=== PATIENT | female | born 1995 | race Two or more races ===

== ENCOUNTER 2024-07-03 18:39 | Outpatient (REF) | payer MEDICAID, SELFPAY ==
[2024-07-03 18:52] LABS: Appearance Urine Cloudy; Color Urine Yellow; Glucose Urine UA Negative (Negative); Leukocyte Esterase Urine Large (3+) (Negative); Nitrite Urine Negative (Negative); PH 7.5 (5.0-9.0); Specific Gravity - Urine 1.025 (1.005-1.025); UMIC TRIGGER UACC YES; Urine Blood Negative (Negative); Urine Ketones Negative (Negative); Urine Protein Trace mg/dL (Neg-Trace)
[2024-07-03 19:09] LABS: Bacteria Urine 2+ (None Seen); Hyaline Casts Urine 0-2 /LPF (0-2); RBC Urine 0-2 /HPF (0-2); Squamous Epithelial Cell Urine >20 /HPF (0-2); UACC Culture Trigger YES; WBC Urine 0-5 /HPF (0-5)
[2024-07-04 13:52] LABS: CT PCR NOT DETECTED (Not Detect.); NG PCR NOT DETECTED (Not Detect.)
== END 2024-07-03 18:40 | disposition home or self-care (01) ==
LOC: HO.HHCLNP 18:39
PROVIDERS: Visit Provider Internal Medicine
DX: N76.0 Acute vaginitis (principal)
CPT/HCPCS: 81001; 87086; 87147; 87491; 87591

== ENCOUNTER 2024-07-25 12:01 | Emergency (ER) | payer MEDICAID, SELFPAY ==
--- NOTE | 2024-07-25 12:17 | ED_ITS ---
HPI - General Adult General Chief complaint: Skin/Abscess/Foreign Body Stated complaint: Lump under armpit Time Seen by Provider: 07/25/24 17:21 History of Present Illness HPI narrative: Patient complains of painful bump under right armpit that started several days ago, there has been no discharge from it there was no injury to it there is no fever there is no joint swelling no dizziness or weakness no other complaint except the increasingly painful bump under right armpit Related Data Previous Rx's ?Medication ?Instructions ?Recorded doxycycline hyclate 100 mg capsule 100 mg PO BID 7 days #14 caps 07/25/24 ibuprofen 600 mg tablet 600 mg PO Q6H PRN pain #20 tabs 07/25/24 Allergies Allergy/AdvReac Type Severity Reaction Status Date / Time No Known Allergies Allergy Verified 07/25/24 12:22 [facility] Past Medical History Source: nursing notes reviewed Social History Social History Advance Directives: No Advance Directives Information Provided: No Physical Exam ED Vital Signs: Vital Signs - 24 hr 07/25/24 12:18 Temperature 97.8 F Pulse Rate 79 Respiratory Rate 16 Blood Pressure 114/69 Pulse Oximetry 100 Oxygen Delivery Method Room Air BMI result Body Mass Index 32.1 General appearance comfortable no distress, head is normocephalic atraumatic Neck is supple Respiratory no distress Extremities full range of motion x4 Exam of the right armpit there is a localized area of tenderness redness and swelling with no surrounding erythema there is full range of motion in the shoulder, findings are consistent with an abscess Neurovascular intact distal Course Course Course Narrative: This is an RME: Additional HPI, ROS, PE not included below will be deferred to primary provider. RME assessment and note performed by: Ludmila Rhodes PA-C This is a 22-osxe-jnh-filipino creole speaking female, with no known medical problems, who presents to the ER with complaints of right sided lump in right axillary region x 4 days. No hx of similar symptoms in the past. No fevers. Right axillary region with area of fluctuance and induration, surrounding erythema and warmth. Plan: I&D, further eval needed. Patient with right axillary abscess with no fever no systemic symptoms no surrounding cellulitis I and D note Cleansed with Betadine Anesthesia 8 cc of 1% lidocaine The abscess was incised in 2 places with copious discharge of pus, it was probed with forceps to break up any loculations and it was packed through both incisions Sterile dressing applied Patient tolerated well Medications Administered Discontinued Medications Generic Name Dose Route Start Last Admin Trade Name Jensen PRN Reason Stop Dose Admin Acetaminophen 975 mg 07/25/24 12:24 07/25/24 12:27 Acetaminophen 325 Mg Tablet PO 07/25/24 12:25 975 mg ONCE ONE Administration Doxycycline Monohydrate 100 mg 07/25/24 19:06 07/25/24 19:25 Doxycycline Monohydrate 100 Mg Capsule PO 07/25/24 19:07 100 mg ONCE ONE Administration Lidocaine HCl 5 ml 07/25/24 19:07 07/25/24 19:26 Lidocaine Hcl 1 % Mpf 5 Ml Vial SUBCUT 07/25/24 19:08 5 ml ONCE ONE Administration Lidocaine HCl 5 ml 07/25/24 19:07 07/25/24 19:26 Lidocaine Hcl 1 % Mpf 5 Ml Vial SUBCUT 07/25/24 19:08 5 ml ONCE ONE Administration Discharge Plan Discharge Clinical Impression: Abscess of skin or subcutaneous tissue Patient Disposition: Home, Self-Care Additional Instructions: Return to ER in 2 days for packing removal Return any time if worse for worse pain and swelling fever spreading redness any worse condition or any concerns Use Motrin as needed for pain Take doxycycline antibiotic for 1 week Prescriptions: New doxycycline hyclate 100 mg capsule 100 mg PO BID 7 Days Qty: 14 0RF ibuprofen 600 mg tablet 600 mg PO Q6H PRN (Reason: pain) Qty: 20 0RF Interventions: ED Discharge Assessment Last Done: 07/25/24 20:35 Discharge Date/Time: 07/25/24 20:35 Print Language: Unknown
[2024-07-25 12:18] VITALS: BP 114/69; PULSE 79; RESP 16; TEMP 36.6; O2SAT 100; BMI 32.1
[2024-07-25] MEDS: Acetaminophen 325 MG TABLET 975 MG PO (12:27)
[2024-07-25] MEDS: Doxycycline Monohydrate 100 MG CAPSULE PO (19:25)
[2024-07-25] MEDS: Lidocaine HCl 1 % MPF 5 ML VIAL SUBCUT ×2 (19:26)
[2024-07-25 20:08] VITALS: BP 121/82; PULSE 76; RESP 17; TEMP 36.2; O2SAT 100
[2024-07-25 20:35] VITALS: BP 121/82; PULSE 76; RESP 17; TEMP 36.2; O2SAT 100
== END 2024-07-25 20:35 | disposition home or self-care (01) ==
PROVIDERS: Emergency Provider Emergency Medicine
DX: N63.31 Unspecified lump in axillary tail of the right breast (principal); Z79.899 Other long term (current) drug therapy
CPT/HCPCS: 10060; 99284; J2003

== ENCOUNTER 2024-07-27 12:21 | Emergency (ER) | payer MEDICAID, SELFPAY ==
[2024-07-27 13:33] VITALS: BP 107/55; PULSE 62; RESP 16; TEMP 36; O2SAT 100; BMI 32.1
--- NOTE | 2024-07-27 13:35 | ED.WOUNDLAC ---
HPI - Wound/Laceration General Stated Complaint: r armpit inj Time Seen by Provider: 07/27/24 13:44 Source: patient, RN notes reviewed, old records reviewed and biological science aide Mode of arrival: ambulatory Limitations: no limitations History of Present Illness ED Provider: Ponce Johansen PA-C HPI narrative: 29 yo female with recent right axillary abscess s/p I&D and packing placement on 07/25 presents to the ER for re-evaluation and packing removal. patient reports overall pain is improving. continues to have some drainage from the area. she has been taking the antibiotics as prescribed. no fevers. no redness around the area. Onset (ago): day(s) Place: home Patient tetanus UTD: Yes Context: accidental Associated symptoms: pain Treatments prior to arrival: bandage Related Data Previous Rx's ?Medication ?Instructions ?Recorded doxycycline hyclate 100 mg capsule 100 mg PO BID 7 days #14 caps 07/25/24 ibuprofen 600 mg tablet 600 mg PO Q6H PRN pain #20 tabs 07/25/24 Allergies Allergy/AdvReac Type Severity Reaction Status Date / Time No Known Allergies Allergy Verified 07/27/24 13:46 Review of Systems Review of Systems: Yes all other systems are reviewed and are negative Physical Exam Vital Signs: Appearance: Alert. Oriented X3. No acute distress. HEENT: normal inspection CVS: Normal heart rate and rhythm. Pulses normal. Respiratory: No respiratory distress. Skin: Skin warm and dry. Normal skin color. Normal skin turgor. No rashes. Extremities: right axillary area with a purulent packing 3/4 way removed from the abscess, <1cm opening with minimal drainage. no erythema. mild tenderness. Neuro: Oriented X 3. grossly normal, nonfocal Medical Decision Making Medical Decision Making MDM Narrative: 29-year-old Tuvaluan Creole speaking female with recent right axillary abscess incision and drainage on July 25 who presents back to the ER for packing removal and wound evaluation. Patient reports improving pain overall. On exam the packing has almost completely worked at self out. It was fully removed. No surrounding cellulitis. Minimal purulent drainage coming from the wound. Tuvaluan Creole biological science aide used to discuss ongoing management including continuation of antibiotics and initiation of warm compresses several times per day. Return precautions were discussed as well as ongoing wound care. She is stable for discharge home. Differential Diagnosis Differential Diagnoses: The differential diagnosis associated with the presentation includes healing abscess, cellulitis, MRSA infection, hidradenitis suppurativa External Record Review External record reviewed: Outpatient record, Prior outpatient labs and Prior outpatient radiology Prescription Management I considered prescription management with: Pain Medication and Antibiotic Critical Care Time Critical Care Time Critical Care Time: No Discharge Plan Discharge Clinical Impression: Abscess Patient Disposition: Home, Self-Care Instructions: Abscess Follow-up (ED) Additional Instructions: continue the antibiotic use warm compresses to the area 5-6 times per day follow up with your doctor If you develop new or worsening symptoms call 911 or come back to the ER for further evaluation. Prescriptions: No Action doxycycline hyclate 100 mg capsule 100 mg PO BID 7 Days Qty: 14 0RF ibuprofen 600 mg tablet 600 mg PO Q6H PRN (Reason: pain) Qty: 20 0RF Print Language: Unknown
[2024-07-27 13:47] VITALS: BP 107/55; PULSE 62; RESP 16; TEMP 36; O2SAT 100
== END 2024-07-27 13:51 | disposition home or self-care (01) ==
LOC: HO.ED 13:49
PROVIDERS: Emergency Provider Emergency Medicine
DX: Z48.01 Encounter for change or removal of surgical wound dressing (principal); L02.411 Cutaneous abscess of right axilla
CPT/HCPCS: 99282

== ENCOUNTER 2024-08-01 18:29 | Outpatient (REF) | payer MEDICAID, SELFPAY ==
[2024-08-02 12:18] LABS: CT PCR NOT DETECTED (Not Detect.); NG PCR NOT DETECTED (Not Detect.)
[2024-08-02 13:54] LABS: Bacterial Vaginosis PCR NEGATIVE (Negative); Candida Group PCR DETECTED (Not Detect); Candida glab krusei PCR NOT DETECTED (Not Detect); Trichomonas vaginalis PCR NOT DETECTED (Not Detect)
== END 2024-08-01 18:30 | disposition home or self-care (01) ==
LOC: HO.HHCLNP 18:29
PROVIDERS: Visit Provider Nurse Practitioner Family
DX: N94.9 Unspecified condition associated with female genital organs and menstrual cycle (principal)
CPT/HCPCS: 0352U; 87491; 87591

== ENCOUNTER 2025-01-10 15:02 | Outpatient (REF) | payer MEDICAID, SELFPAY ==
--- OUTSIDE RECORDS SUMMARY | 2025-01-10 17:32 | XMS_ITS | Clinical Summary ---
Author Organization [employer] Address [address] [place] [address] Care Team Providers Care Shrimp Header Name Role Phone Monica Dukes LINE ASSIGNER Primary Care Provider [phone] Allergies No known active allergies Medications medroxyPROGESTER one (Depo-Provera) 150 MG/ML injectionIndicat ions:Family planning Inject 1 mL (150 mg) into the muscle every 3 (three) months. 1 mL 3 08/31/2024 Active medroxyPROGESTER one (Depo-Provera) 150 MG/ML injectionIndicat ions:Family planning Inject 1 mL (150 mg) into the muscle every 3 (three) months. 1 mL 3 08/31/2024 Active Hospital, Clinic, or Other Facility Administered Medication Ordered Dose Route Frequency Start Date End Date Status medroxyPROGESTERone (Depo-Provera) injection 150 mgIndications:Family planning 150 mg IM Every 3 months 08/31/2024 08/26/2025 Active Active Problems Problem Noted Date Diagnosed Date Healthcare maintenance 12/22/2024 Overview (12/22/2024): Pap: denies previous knowledge of pap. Encouraged to schedule during [facility] appt on 12/22/24, she said will consider Assessment & Plan (12/22/2024 2:47 PM EDT): Initial routine labs ordered today Resolved Problems Problem Noted Date Diagnosed Date Resolved Date Cutaneous abscess of right axilla 07/25/2024 12/22/2024 Assessment & Plan (07/25/2024 11:27 AM EDT): Patient here for a sick visit with c/o painful right axillary masses x 3 days. Exam suggestive of abscesses, hydradenitis suppurativa? Pt unable to move her right arm as a result of severe pain Plan: Pt needs to be evaluated in the ER, she will need a soft tissues US to rule out other etiologies . Will also need I & D and initial IV antibiotics followed by oral antibiotics. Follow up here at the [facility] for a check up after ER evaluation and I&D, while patient awaits to be assigned to PCP Acute vaginitis 07/03/2024 12/22/2024 Assessment & Plan (07/03/2024 1:44 PM EDT): Will rx fluconazole x 1 dose Will order GC/Chlamydia tests + Urine cx, and we'll call back prn abn results. Will schedule a [facility] appt with new PCP or re consult earlier prn sxs. I advised re protected intercourse, even though the most likely cause of today's sxs (leandra) is not a STD. She says she protects herself. I advised re use of BC but she declined to start OCPs, patch or injectable. She didn't want to be scheduled for IUD or nexplanon. She's aware of emergency contraception. Encounters Date Type Department Care Team Description 12/22/2024 1:15 PM EDT Office Visit [facility] [address] [place] [address] Monica Dukes FNP Healthcare maintenance (Primary Dx); Dietary counseling; Exercise counseling; Encounter for immunization; Contraceptive education 12/22/2024 Travel 12/22/2024 Population Health Risk Score Community Care [facility] ([facility]) Department [address] [place] [address] [phone] Provider, Population Health Generic 12/18/2024 Telephone [facility] [address] [place] [address] Monica Dukes FNP Chart Prep 11/30/2024 3:00 PM EST Clinical Support [facility] [address] [place] [address] Larua Torres RN Encounter for contraceptive management, unspecified type 11/30/2024 Travel 11/30/2024 Telephone [facility] [address] [place] [address] Natalee Jauregui RN [place] 10/13/2024 Telephone [facility] [address] [place] [address] Celio Sanches MD New patient appt. from Last 3 Months Immunizations Name Administration Dates Next Due Tdap 12/22/2024 Family History Medical History Relation Name Comments No Known Problems Father No Known Problems Mother Relation Name Status Comments Father Mother Social History Tobacco Use Types Packs/Day Years Used Date Smoking Tobacco: Never Passive Smoke Exposure: Never Smokeless Tobacco: Never Tobacco Cessation:Counseling Given: Not Answered Alcohol Use Standard Drinks/Week Comments Never 0 (1 standard drink = 0.6 oz pur e alcohol) Housing Stability Answer Date Recorded What is your housing situation today? I have deacon mancini 12/22/[address] you li ve. Do you have problems with any of the following? None of the above 12/22/2024 Food Insecurity Answer Date Recorded Within the past 12 months, y ou worried that your food would run out before you got money to buy more: Never True 12/22/2024 Within the past 12 months,th e food you bought just didn't last and you didn't have enough money to get more: Never True Transportation Answer Date Recorded In the past 12 months, has l ack of transportation kept you from medical appts, meetings, work or from getting things needed for daily living? No 12/22/2024 Utilities Answer Date Recorded In the past 12 months, has t he [employer], gas, oil or water [employer] threatened to shut off services in your home? No 12/22/2024 Internet Access Answer Date Recorded Internet Access Q1 Yes 12/22/2024 Internet Access Q2 Not on file 12/22/2024 Comments No Sex and Gender Information Value Date Recorded Sex Assigned at Female 06/28/2024 1:38 PM EDT Legal Sex Female 1:24 PM EDT Gender Identity Female 06/28/2024 1:38 PM EDT Sexual Orientation Choose not to disclose 2023 1:40 PM EDT Last Filed Vital Signs Vital Sign Reading Time Taken Comments Blood Pressure 123/73 12/22/2024 1:28 PM EDT Pulse 85 12/22/2024 1:28 PM EDT Temperature 37 ??C (98.6 ??F) 12/22/2024 1:28 PM EDT Respiratory Rate 20 12/22/2024 1:28 PM EDT Oxygen Saturation 98% 12/22/2024 1:28 PM EDT Inhaled Oxygen Concentration - - Weight 86.4 kg (190 lb 6 oz) 12/22/2024 1:28 PM EDT Height 162.6 cm (5' 4 ) 12/22/2024 1:28 PM EDT Body Mass Index 32.68 12/22/2024 1:28 PM EDT Plan of Treatment Upcoming Encounters Date Type Department Care Team (Late st Contact Info) Description 03/02/2025 11:00 AM EDT Clinical Support [facility] [address] [place] [address] 03/09/2025 10:00 AM EDT Office Visit [facility] [address] [place] [address] Monica Dukes FNP [address] [place] [address] Health Maintenance Due Date Last Done Comments Depression Screening 1995 HIV Screening 1995 Hepatitis C Screening 2013 Hepatitis B Vaccines (1 of 3 - 19+ 3-dose series) 2014 Pap Smear 02/15/2016 COVID-19 Vaccine (2023-2 5 season) 2024 Influenza Vaccine (#1) 2024 Alcohol/Substance Use Screening 12/22/2025 Family Planning (PISQ) 12/22/2025 12/22/2024 SDOH Screening 12/22/2025 12/22/2024 Tobacco Screening 12/22/2025 12/22/2024 DTaP/Tdap/Td Vaccines (2 - T d or Tdap) 12/22/2034 12/22/2024 Zoster Vaccines (1 of 2) 2045 RSV Patients and Pa tients Aged 60 years or older (1 - 1-dose 75+ series) 2070 HIB Vaccines Aged Out No longer eligi ble based on patient's age to complete this topic HPV Vaccines Aged Out No longer eligi ble based on patient's age to complete this topic Hepatitis A Vaccines Aged Out No long er eligible based on patient's age to complete this topic IPV Vaccines Aged Out No longer eligi ble based on patient's age to complete this topic Meningococcal Vaccine Aged Out No vitaliy brian eligible based on patient's age to complete this topic Pneumococcal Vaccine: Pediat rics (0 to 5 Years) and At-Risk Patients (6 to 49) Years) Aged Out No longer elig ible based on patient's age to complete this topic RSV under 20 months Aged Out No longe r eligible based on patient's age to complete this topic Rotavirus Vaccines Aged Out No longer eligible based on patient's age to complete this topic Insurance [employer] C3 Care Teams Shrimp Header Relationship Specialty Start Date End Date Monica Dukes FNP [address] [place] [phone] PCP - General Family Medicine 12/22/24
[2025-01-10 18:03] LABS: MANUAL DIFF FLAG NO
[2025-01-10 18:32] LABS: Estimated Average Glucose 126 mg/dL; Total Hemoglobin (HGBA1C) 3081.7817 umol/L
[2025-01-10 18:39] LABS: Alanine Aminotransferase 68 U/L (0-31); Alkaline Phosphatase 97 U/L (39-117); Anion Gap 7 (12-20); Aspartate Amino Transferase 42 U/L (5-31); Bilirubin Total 0.2 mg/dL (0.0-1.0); Blood Urea Nitrogen 8 mg/dL (9-16); Calcium 8.8 mg/dL (8.4-10.2); Carbon Dioxide 24 mmol/L (22-29); Chloride 111 mmol/L (96-108); Cholesterol 132 mg/dL (<200); Estimated Glomerular Filt Rate > 60; Glucose Random 103 mg/dL (60-115); HDL Cholesterol 36 mg/dL (>40); LDL Cholesterol Calculated 85 mg/dL (<100); Potassium 3.7 mmol/L (3.3-5.1); Sodium 138 mmol/L (135-145); Total Protein 7.6 g/dL (6.5-8.0); Triglycerides 55 mg/dL (<150)
[2025-01-10 18:51] LABS: Basophils Absolute Auto 0.1 X10*3/uL (0.0-0.2); Basophils Percent Auto 0.7 % (0-2); Eosinophils Absolute Auto 0.3 X10*3/uL (0.0-0.4); Eosinophils Percent Auto 4.3 % (0-4); Hematocrit 35.8 % (37.0-47.0); Hemoglobin 11.4 g/dl (12.0-16.0); Imm Gran Abs Auto 0.01 X10*3/uL (0.00-0.03); Imm Gran Pct Auto 0.1 % (0.0-0.4); Lymphocytes Absolute Auto 3.1 X10*3/uL (1.2-4.9); Lymphocytes Percent Auto 42.8 % (20-40); Mean Corpuscular HGB Conc 31.8 g/dl (31.0-35.0); Mean Corpuscular Hemoglobin 25.8 pg (27.0-33.0); Mean Platelet Volume 11.8 fL (9.4-12.3); Monocytes Absolute Auto 0.7 X10*3/uL (0.1-1.2); Monocytes Percent Auto 9.2 % (2-11); Neutrophils Absolute Auto 3.1 x10*3/uL (2.0-8.3); Neutrophils Percent Auto 42.9 % (45-73); Platelet Count 233 X10*3/uL (160-400); Red Blood Count 4.42 X10*6/uL (4.20-5.50); Red Cell Distribution Width 14.6 % (11.0-16.0); White Blood Count 7.3 X10*3/uL (4.8-10.8)
[2025-01-10 18:56] LABS: TSH reflex Free T4 0.87 uIU/mL (0.32-4.0); Vitamin D 25-OH Total 19.5 ng/mL (>30)
[2025-01-11 02:18] LABS: CT PCR DETECTED (Not Detect.); NG PCR NOT DETECTED (Not Detect.)
[2025-01-11 08:47] LABS: HBS Num1 47.26 mIU/mL (0-7.99); HBc Num1 0.16 S/CO (0.00-0.79); HBsAGNum1 0.32 S/CO (0.00-0.99); HIV AB/AG Nonreactive (Nonreactive); HIV Num 1 0.08 S/CO (0.00-0.99); Hepatitis B Core Antibody Nonreactive (Nonreactive); Hepatitis B Surface Antigen Negative (Negative); ~Hepatitis B Surface Antibody REACTIVE (Nonreactive)
[2025-01-11 12:48] LABS: RPR Rapid Plasma Reagin NON-REACTIVE (NON-REACTIVE)
[2025-01-11 17:53] LABS: HCV Log PCR <1.18 NOT DETECTED Log IU/mL (NOT DETECTED); HepC Viral Load <15 NOT DETECTED IU/mL (NOT DETECTED)
[2025-01-13 00:24] LABS: TS Negative Control Passed; TS Panel A 0; TS Panel B 1; TS Positive Control Passed; TSpotTB Negative (Negative)
== END 2025-01-10 15:03 | disposition home or self-care (01) ==
LOC: HO.CHCLDS 15:02
PROVIDERS: Visit Provider Registered Nurse
DX: Z00.00 Encounter for general adult medical examination without abnormal findings (principal)
CPT/HCPCS: 36415; 80053; 80061; 82306; 83036; 84443; 85025; 86481; 86592; 86704; 86706; 87340; 87389; 87491; 87522; 87591

== ENCOUNTER 2025-03-09 15:30 | Outpatient (REF) | payer MEDICAID, SELFPAY ==
--- OUTSIDE RECORDS SUMMARY | 2025-03-09 15:36 | XMS_ITS | Encounter Summary ---
Author Organization [employer] Address [address] [place] [address] Care Team Providers Care Cyberathlete Name Role Phone Monica Dukes TRAFFIC MAINTENANCE SUPERVISOR Primary Care Provider [phone] Encounter Details Date Type Department Care Team (Latest Contact Info) Description 03/09/2025 Travel Social History Tobacco Use Types Packs/Day Years Used Date Smoking Tobacco: Never Passive Smoke Exposure: Never Smokeless Tobacco: Never Alcohol Use Standard Drinks/Week Comments Never 0 (1 standard drink = 0.6 oz pur e alcohol) Depression Answer Date Recorded Patient Health Questionnaire-9 Score 0 03/09/2025 Patient Health Questionnaire-9 Score 0 03/09/2025 Last PHQ-9: Questionnaire Data Not on file 0 03/09/2025 Housing Stability Answer Date Recorded What is [...] the past 12 months, has t he electric, gas, oil or water company threatened to shut off services in your home? No 12/22/2024 Depression Answer Date Recorded Patient Health Questionnaire-2 Score 0 03/09/2025 Internet Access Answer Date Recorded Internet Access Q1 Yes 12/22/2024 Internet Access Q2 Not on file 12/22/2024 Comments No Sex and Gender Information Value Date Recorded Sex Assigned at Female 06/28/2024 1:38 PM EDT Legal Sex Female 1:24 PM EDT Gender Identity Female 06/28/2024 1:38 PM EDT Sexual Orientation Choose not to disclose 2023 1:40 PM EDT documented as of this encounter Functional Status * Over the past 2 weeks, how often have you been bothered by any of the following problems? Question Answer Date of Assessment Author Patient Health Questionnaire-2 Score 0 02/10 9:59 AM Klyie Zuniga MA * Little interest or pleasure in doing things Answer Date of Assessment Author Not at all 03/09/2025 9:59 AM Ana Zuniga MA * Feeling down, depressed, or hopeless Answer Date of Assessment Author Not at all 03/09/2025 9:59 AM Ana Zuniga MA * Trouble falling or staying asleep, or sleeping too much Answer Date of Assessment Author Not at all 03/09/2025 9:59 AM Ana Zuniga MA * Feeling tired or having little energy Answer Date of Assessment Author Not at all 03/09/2025 9:59 AM Ana Zuniga MA * Poor appetite or overeating Answer Date of Assessment Author Not at all 03/09/2025 9:59 AM Ana Zuniga MA * Feeling bad about yourself - or that you are a failure or have let yourself or your family down Answer Date of Assessment Author Not at all 03/09/2025 9:59 AM Ana Zuniga MA * Trouble concentrating on things, such as reading the newspaper or watching television Answer Date of Assessment Author Not at all 03/09/2025 9:59 AM Ana Zuniga MA * Moving or speaking so slowly that other people could have noticed? Or the opposite - being so fidgety or restless that you have been moving around a lot more than usual. Answer Date of Assessment Author Not at all 03/09/2025 9:59 AM Ana Zuniga MA * Thoughts that you would be better off or hurting yourself in some way Answer Date of Assessment Author Not at all 03/09/2025 9:59 AM EDT Ana Harper MA * Patient Health Questionnaire-9 Score Answer Date of Assessment Author 0 03/09/2025 9:59 AM EDT Ana Harper MA documented as of this encounter Plan of Treatment Upcoming Encounters Date Type Department Care Team (Late st Contact Info) Description 05/29/2025 1:00 PM EDT Clinical Support [facility] [address] [place] [id number] documented as of this encounter Visit Diagnoses Not on filedocumented in this encounter Additional Health Concerns Assessment Noted Time PHQ-9 Depression Total Score: 0 03/09/20 9:59 AM EDT documented as of this encounter Care Teams Cyberathlete Relationship Specialty Start Date End Date Monica Dukes FNP [address] [place] [id number] PCP - General Family Medicine 12/22/24 documented as of this encounter
[2025-03-10 03:43] LABS: CT PCR DETECTED (Not Detect.); NG PCR NOT DETECTED (Not Detect.)
== END 2025-03-09 15:31 | disposition home or self-care (01) ==
LOC: HO.CHCLNP 15:30
PROVIDERS: PCP Registered Nurse; Visit Provider Registered Nurse
DX: Z00.00 Encounter for general adult medical examination without abnormal findings (principal)
CPT/HCPCS: 87491; 87591

== ENCOUNTER 2025-07-13 14:28 | Outpatient (REF) | payer MEDICAID, SELFPAY ==
--- OUTSIDE RECORDS SUMMARY | 2025-07-13 08:30 | XMS_ITS | Encounter Summary ---
Author Organization [employer] Address [address] [place] [address] Care Team Providers Care Line Dancer Name Role Phone Monica Dukes Primary Care Provider [phone] Encounter Details Date Type Department Care Team ([facility] st Contact Info) Description 07/13/2025 8:30 AM EDT Office Visit [facility] [address] [place], [place] [phone] Monica Dukes FNP [address] [place], [place] [phone] Encounter for immunization (Primary Dx); Healthcare maintenance Social History Tobacco Use Types Packs/Day Years [...] PM EDT documented as of this encounter Last Filed Vital Signs Vital Sign Reading Time Taken Comments Blood Pressure 107/60 07/13/2025 8:40 AM EDT Pulse 66 07/13/2025 8:40 AM EDT Temperature 36.7 C (98 F) 07/13/2025 8:40 AM EDT Respiratory Rate 20 07/13/2025 8:40 AM EDT Oxygen Saturation 99% 07/13/2025 8:40 AM EDT Inhaled Oxygen Concentration - - Weight 88.5 kg (195 lb) 07/13/2025 8:40 AM EDT Height 165.1 cm (5' 5 ) 07/13/2025 8:40 AM EDT Body Mass Index 32.45 07/13/2025 8:40 AM EDT documented in this encounter Plan of Treatment Upcoming Encounters Date Type Department Care Team (Late st Contact Info) Description 07/24/2025 9:00 AM EDT Procedure Visit [facility] [address] [place] [address] Mai Randall MD [address] [place] [address] Scheduled Orders Name Type Priority Associated Diagnoses Orde r Schedule Chlamydia/Trichomonas/Neis seria gonorrhoeae, PCR, Urine Lab Routine Healthcare maintenance Ordered: 07/13/2025 documented as of this encounter Visit Diagnoses Diagnosis Encounter for immunization- Primary Healthcare maintenance documented in this encounter Additional Health Concerns Assessment Noted Time PHQ-9 Depression Total Score: 0 03/09/20 9:59 AM EDT documented as of this encounter Care Teams Line Dancer Relationship Specialty Start Date End Date Monica Dukes FNP [address] [place] [id number] PCP - General Family Medicine 12/22/24 documented as of this encounter
--- OUTSIDE RECORDS SUMMARY | 2025-07-13 14:33 | XMS_ITS | Encounter Summary ---
Author Organization [employer] Address [address] [place] [address] Care Team Providers Care Pipe Manufacture Supervisor Name Role Phone Monica Dukes MACHINE BUNCH MAKER Primary Care Provider [phone] Encounter Details Date Type Department Care Team (Latest Contact Info) Description 07/13/2025 Travel Social History Tobacco Use Types Packs/Day [...] PM EDT documented as of this encounter Plan of Treatment Upcoming Encounters Date Type Department Care Team ([facility] st Contact Info) Description 07/24/2025 9:00 AM EDT Procedure Visit [facility] [address] [place] [address] Mai Randall MD [address] [place] [address] documented as of this encounter Visit Diagnoses Not on filedocumented in this encounter Additional Health Concerns Assessment Noted Time PHQ-9 Depression Total Score: 0 03/09/20 9:59 AM EDT documented as of this encounter Care Teams Pipe Manufacture Supervisor Relationship Specialty Start Date End Date Monica Dukes FNP [address] [place] [address] PCP - General Family Medicine 12/22/24 documented as of this encounter
--- OUTSIDE RECORDS SUMMARY | 2025-07-13 14:33 | XMS_ITS | Encounter Summary ---
Author Organization [employer] Address [address] [facility] [address] [place] [address] Care Team Providers Care Clutch Inspector Name Role Phone Monica Dukes DIRECTOR TELEMETRY Primary Care Provider [phone] Reason for Visit * Reason Onset Date Comments Chart Prep 07/12/2025 Encounter Details Date Type Department Care Team ([facility] st Contact Info) Description 07/12/2025 Telephone [facility] [address] [place], [place] [phone] Monica Dukes FNP [address] [place], [place] [phone] Chart Prep Social History Tobacco Use Types Packs/Day Years [...] PM EDT documented as of this encounter Miscellaneous Notes * Telephone Encounter - Maritza Christiansen [place] - 07/12/2025 2:16 PM EDT Chart Prep Labs: not done Images: not applicable Referrals: not applicable Vaccines due: due Screenings: pap smear Overdue care gaps: Disability screen documented in this encounter Plan of Treatment Upcoming Encounters Date Type Department Care Team (Late st Contact Info) Description 07/24/2025 9:00 AM EDT Procedure Visit [facility] P[facility] [address] [place] [address] Mai Randall MD [address] [place] [address] documented as of this encounter Visit Diagnoses Not on filedocumented in this encounter Additional Health Concerns Assessment Noted Time PHQ-9 Depression Total Score: 0 03/09/20 9:59 AM EDT documented as of this encounter Care Teams Clutch Inspector Relationship Specialty Start Date End Date Monica Dukes FNP [address] [place] [address] PCP - General Family Medicine 12/22/24 documented as of this encounter
--- OUTSIDE RECORDS SUMMARY | 2025-07-13 14:33 | XMS_ITS | Clinical Summary ---
Author Organization [employer] Address [address] [place] [address] Care Team Providers Care Drywall Stripper Name Role Phone Monica Dukes DELICATESSEN CLERK Primary Care Provider [phone] Allergies No known active allergies Medications cholecalciferol (Vitamin D-3) 25 MCG (1000 UT) tabletIndicatio ns:Vitamin D deficiency Take 1 tablet (25 mcg) by mouth Once per day. 90 tablet 3 5 Active norethindrone (Micronor) 0.35 MG tablet Take 1 tablet (0.35 mg) by mouth Once per day. 28 tablet 11 5 05/31/20 26 Active medroxyPROGESTE Moses (Depo-Provera) 150 MG/ML injectionIndica tions:Family planning Inject 1 mL (150 mg) into the muscle every 3 (three) months. 1 mL 3 4 07/13/20 25 Discontinu ed(Therapy completed) medroxyPROGESTE Moses (Depo-Provera) 150 MG/ML injectionIndica tions:Family planning Inject 1 mL (150 mg) into the muscle every 3 (three) months. 1 mL 3 4 07/13/20 25 Discontinu ed(Therapy completed) Hospital, Clinic, or Other Facility Administered Medication Ordered Dose Route Frequency Start Date End Date Status medroxyPROGESTERon e (Depo-Provera) injection 150 mgIndications:Fami ly planning 150 mg IM Every 3 months 08/31/2024 5 Discontinued Active Problems Problem Noted Date Diagnosed Date Prediabetes 03/09/2025 Overview (03/11/2025): Lab Results Component Value Date HGBA1C 6.0 01/10/2025 Assessment & Plan (03/11/2025 7:20 PM EDT): - Results and recommendations reviewed with patient -Plan for lifestyle interventions Vitamin D insufficiency 03/09/2025 Overview (03/11/2025): Lab Results Component Value Date [id number] 19.5 (L) 01/10/2025 - Started on vitamin D 1000 units daily January 2025 Transaminitis 03/09/2025 Overview (03/11/2025): Lab Results Component Value Date AST 42 (H) 01/10/2025 ALT 68 (H) 01/10/2025 TOTPROTEIN 7.6 01/10/2025 ALB 4.0 01/10/2025 ALP 97 01/10/2025 TOTALBILIRUB 0.2 01/10/2025 Assessment & Plan (03/11/2025 7:22 PM EDT): - Reviewed results with patient, plan for lifestyle interventions. Repeat in 6- 12 months. Healthcare maintenance 12/22/2024 Overview (12/22/2024): Pap: denies previous knowledge of pap. Encouraged to schedule during CHANGE MANAGEMENT DIRECTOR appt on 12/22/24, she said will consider [...] oral antibiotics. Follow up here at the [facility] for a check up after ER evaluation and I&D, while patient awaits to be assigned to PCP Acute vaginitis 07/03/2024 12/22/2024 Assessment & Plan (07/03/2024 1:44 PM EDT): Will rx fluconazole x 1 dose Will order GC/Chlamydia tests + Urine cx, and we'll call back prn abn results. Will schedule a CHANGE MANAGEMENT DIRECTOR appt with new PCP or re consult [...] Encounters Date Type Department Care Team Description 07/13/2025 8:30 AM EDT Office Visit [facility] [address] [place] [address] Monica Dukes FNP Encounter for immunization (Primary Dx); Healthcare maintenance 07/13/2025 Travel 07/12/2025 Telephone [facility] [address] [place] [address] Monica Dukes FNP Chart Prep 05/31/2025 11:15 AM EDT Telemedicine [facility] [address] [place] [address] Jay Mcdonald MD Encounter for initial prescription of contraceptive pills (Primary Dx) 05/31/2025 Travel 05/29/2025 1:00 PM EDT Clinical Support [facility] [address] [place] [address] Isa Sesay RN Healthcare maintenance [Z00.00] 05/29/2025 Travel 05/23/2025 Travel from Last 3 Months Immunizations Immunization Administration Dates Next Due Influenza, seasonal, injectable, preservative fr ee 07/13/2025 Tdap 12/22/2024 Varicella 12/10/2023 Family History Medical History Relation Name Comments [...] Q2 Not on file 12/22/2024 Comments No Intention Date Recorded No desire to become (finding) 0 12/22/2024 Sex and Gender Information Value Date Recorded [...] Mass Index 32.45 07/13/2025 8:40 AM EDT Plan of Treatment Upcoming Encounters Date Type Department Care Team (Late st Contact Info) Description 07/24/2025 9:00 AM EDT Procedure Visit [facility] [address] [place] [address] Mai Randall MD [address] [place] [address] Health Maintenance Due Date Last Done Comments HPV Vaccines (1 - 3-dose series) 2010 Pap Smear 02/15/2016 Cervical Cancer Screening 2025 HPV/Cotest 2025 COVID-19 Vaccine ( - 2023-2 5 season) 2025 Alcohol/Substance Use Screening 12/22/2025 12/22/2024 Family Planning (PISQ) 12/22/2025 12/22/2024 SDOH Screening 12/22/2025 12/22/2024 Tobacco Screening 12/22/2025 12/22/2024 Diabetes: Hemoglobin A1C 01/10/2026 01/10/2025 Depression Screening 03/09/2026 03/09/2025, 03/09/2025 Disability Screening 07/13/2026 07/13/2025 DTaP/Tdap/Td Vaccines (2 - T d or Tdap) 12/22/2034 12/22/2024 Zoster Vaccines (1 of 2) 2045 RSV Patients and Patients Aged 60 years or older (1 - 1-dose 75+ series) 2070 HIV Screening Completed 01/10/2025 Hepatitis C Screening Completed 01/10/2025 Influenza Vaccine Completed 07/13/2025 HIB Vaccines Aged Out No longer eligi ble based on patient's age to complete this topic Hepatitis A Vaccines Aged Out No long er eligible based on patient's age to complete this topic Hepatitis B Vaccines Discontinued IPV Vaccines Aged Out No longer eligi ble based on patient's age to complete this topic Meningococcal B Vaccine Aged Out No l onger eligible based on patient's age to complete this topic Meningococcal Vaccine Aged Out No vitaliy brian eligible based on patient's age to complete this topic Pneumococcal Vaccine: Pediatrics (0 to 5 Years) and At-Risk Patients (6 to 49) Years Aged Out No longer eligible based on patient's age to complete this topic RSV under 20 months Aged Out No longe r eligible based on patient's age to complete this topic Rotavirus Vaccines Aged Out No longer eligible based on patient's age to complete this topic Procedures Procedure Name Priority Date/Time Associated Diagnosis Comments HEPATITIS C VIRAL RNA, QUANTITATIVE, REAL-TIME PCR Routine 01/10/2025 3:06 PM EDT Healthcare maintenance HIV 1/2 ANTIGEN/ANTIBODY, FOURTH GENERATION W/RFL Routine 01/10/2025 3:06 PM EDT Healthcare maintenance HEMOGLOBIN A1C Routine 01/10/2025 3:06 PM EDT Healthcare maintenance from Last 3 Months or Most Recently Relevant to Health Maintenance Results * Hepatitis C Viral RNA, Quantitative, Real-Time PCR (01/10/2025 3:06 PM EDT) Hepatitis C Viral Load <15 NOT DETECTED NOT DETECTED IU/mL [facility] HCV Log PCR <1.18 NOT DETECTED NOT DETECTED Log IU/mL [facility] Comment:For additional infor tracy, please refer [email or web address]/[email or web address](This link is being provided for informational/educational purposes only.)THIS TEST WAS PERFORMED AT:[employer] [place] [id number] ORTEGA MD Blood 01/10/2025 3:06 PM EDT 01/10/2025 5:57 PM EDT Monica Dukes DELICATESSEN CLERK LAB BLOOD ORDERABLES Final Res ult Performing Organization Address [facility]/ZIP Co de Phone Number [facility] [address] [place] [address] [phone] * HIV-1/2 Antigen and Antibodies, Fourth Generation, with Reflexes (01/10/2025 3:06 PM EDT) HIV AB/AG Nonreactive Nonreactive [facility] Comment:HIV-1 p24 Ag and/or HIV-1/HIV-2 Ab not detected.A test result that is nonreactive does not exclude thepossibility of exposure to or infection with HIV-1 and/orHIV-2. Nonreactive results in this assay for individualswith prior exposure to HIV-1 and/or HIV-2 may be due toantigen and antibody levels that are below the limit ofdetection of this assay.The [employer] HIV Ag/Ab Combo assay result andsupplemental assay results should be interpreted inconjunction with the patient's clinical presentation,history and other laboratory results. If the results areinconsistent with clinical evidence, additional testing issuggested to confirm the result. Blood Venous blood specimen / Unknown 01/10/2025 3:06 PM EDT 01/10/2025 5:57 PM EDT Monicayessy Dukes DELICATESSEN CLERK LAB BLOOD ORDERABLES Final Res ult Performing Organization Address [facility] Co de Phone Number [facility] [address] [place] [address] [phone] * Hemoglobin A1c (01/10/2025 3:06 PM EDT) Hemoglobin A1c 6.0 <6.0 % [facility] Comment:Hemoglobin A1C Refer ence Range Adults: 4.8 - 6.0 % Non diabetic: < 6.0 % Goal: < 7.0 %Additional Action Suggested: > 8.0 %Note: Hemoglobin A1c results are invalid for patients with abnormal amounts of HbF. Blood transfusions may impact the HbA1c concentration in the patient sample. Estimated Average Glucose 126 mg/dL [facility] Comment:eAG = Estimated ave rage glucose which is %A1C expressed asaverage glucose, using the formula of the R0X-AtqpcoxXoeqphg Glucose study (ADAG), Diabetes Care, Vol.31,#8,2007 Blood Venous blood specimen / Unknown 01/10/2025 3:06 PM EDT 01/10/2025 5:57 PM EDT us Monica CAPONE LAB BLOOD ORDERABLES Final Res ult [facility] [address] [place] [address] [phone] from Last 3 Months or Most Recently Relevant to Health Maintenance Insurance [employer] Care Teams Drywall Stripper Relationship Specialty Start Date End Date Monica Dukes FNP [address] [place] [phone] PCP - General Family Medicine 12/22/24
--- OUTSIDE RECORDS SUMMARY | 2025-07-13 14:33 | XMS_ITS | Clinical Summary ---
Author Organization [facility] Address [address] [address] Phone Care Team Providers Care Dry Kiln Feeder Name Role Phone Unknown, Unknown Primary Care Provider Hermelinda cruz Allergies No known active allergies Medications No known medications Active Problems No known active problems Social History Tobacco Use Types Packs/Day Years Used Date Smoking Tobacco: Never Assessed Education Answer Date Recorded Are you interested in more education? Not on sofi e 12/13/2023 Are you concerned about learning? Not on file 12/13/2023 No 12/13/2023 No 12/13/2023 Digital Access Answer Date Recorded No 12/13/2023 No 12/13/2023 Reliable internet access at home? Not on file 12/13/2023 Device with a working camera? Not on file Comments Unknown Sex and Gender Information Value Date Recorded Sex Assigned at Female 12/13/2023 6:03 PM EST Legal Sex Female 3:58 PM EST Gender Identity Female 12/13/2023 6:03 PM EST Sexual Orientation Straight 12/13/2023 6: 03 PM EST Last Filed Vital Signs Vital Sign Reading Time Taken Comments Blood Pressure 119/65 12/21/2023 8:06 PM EDT Pulse 68 12/21/2023 8:06 PM EDT Temperature 36.8 C (98.2 F) 12/21/2023 8:06 PM EDT Respiratory Rate 16 12/21/2023 8:06 PM EDT Oxygen Saturation 99% 12/21/2023 8:06 PM EDT Inhaled Oxygen Concentration - - Weight 65 kg (143 lb 4.8 oz) 12/21/2023 4:57 PM EDT Height 159 cm (5' 2.6 ) 12/21/2023 4:57 PM EDT Body Mass Index 25.71 12/21/2023 4:57 PM EDT Plan of Treatment Health Maintenance Due Date Last Done Comments Adult Td,Tdap Booster 1995 DEPRESSION SCREENING 2007 SMOKING Hx and SMOKELESS TOB ACCO SCREENING 02/15/2008 PAP SMEAR 02/15/2016 INFLUENZA VACCINE (#1) 2025 COVID-19 VACCINE (2023-2 5 season) 2025 HEPATITIS C SCREENING Completed 12/13/2023 HIV ONE-TIME SCREENING (18-6 5 YEARS) Completed 12/13/2023 HEPATITIS A VACCINES Aged Out No long er eligible based on patient's age to complete this topic HIB VACCINES Aged Out No longer eligi ble based on patient's age to complete this topic MENINGOCOCCAL VACCINES (ACWY) Aged Out No longer eligible based on patient's age to complete this topic MENINGOCOCCAL VACCINES (B) Aged Out N o longer eligible based on patient's age to complete this topic PNEUMOCOCCAL VACCINES (0-49 years) Aged Out No longer eligible based on patient's age to complete this topic Medical Devices Not on file Procedures Procedure Name Priority Date/Time Associated Diagnosis Comments HEPATITIS C ANTIBODY, QUALITATIVE STAT 12/13/2023 6:41 PM EST from Last 3 Months or Most Recently Relevant to Health Maintenance Results * Hepatitis C antibody, qualitative (12/13/2023 6:41 PM EST) HCV Nonreactive Nonreactive [facility] Blood 12/13/2023 6:41 PM EST 12/13/2023 6:55 PM EST us Pierre Adarsh Walsh MD LAB BLOOD ORDERABLES Dolores alas Result [facility] [address] [place] [phone] from Last 3 Months or Most Recently Relevant to Health Maintenance [place] [facility] [place] [facility] [place] [facility] [place] [id number] Care Teams Dry Kiln Feeder Relationship Specialty Start Date End Date Unknown, Unknown, PCP - General 12/13/23 Additional Source Comments The information contained in this document represents components of the legal health record. It is not the complete legal health record.[facility]
[2025-07-13 16:25] LABS: CT PCR Urine NOT DETECTED (Not Detect.); NG PCR Urine NOT DETECTED (Not Detect.)
== END 2025-07-13 14:29 | disposition home or self-care (01) ==
LOC: HO.LNP 14:28
PROVIDERS: Visit Provider Registered Nurse
DX: Z00.00 Encounter for general adult medical examination without abnormal findings (principal); Z20.2 Contact with and (suspected) exposure to infections with a predominantly sexual mode of transmission
CPT/HCPCS: 87491; 87591

== ENCOUNTER 2025-07-24 14:14 | Outpatient (REF) | payer MEDICAID, SELFPAY ==
--- OUTSIDE RECORDS SUMMARY | 2025-07-24 09:00 | XMS_ITS | Encounter Summary ---
Author Organization [employer] Address [address] [place] [address] Care Team Providers Care Transport Driver Name Role Phone Monica Dukes AS400 ANALYST Primary Care Provider [phone] Reason for Visit * Reason Comments Cervical Cancer Screening Encounter Details Date Type Department Care Team (Latest Contact Info) Description 07/24/2025 9:00 AM EDT Procedure Visit [facility] [address] [place], [place] [phone] Mai Randall MD [address] [place] [address] Cervical cancer screening (Primary Dx) Social History Tobacco Use Types Packs/Day Years [...] Sign Reading Time Taken Comments Blood Pressure 120/76 07/24/2025 9:06 AM EDT Pulse 84 07/24/2025 9:06 AM EDT Temperature 36.1 C (97 F) 07/24/2025 9:06 AM EDT Respiratory Rate 20 07/24/2025 9:06 AM EDT Oxygen Saturation 98% 07/24/2025 9:06 AM EDT Inhaled Oxygen Concentration - - Weight 88.7 kg (195 lb 9.6 oz) 07/24/2025 9:06 A M EDT Height 165 cm (5' 4.96 ) 07/24/2025 9:06 AM EDT Body Mass Index 32.59 07/24/2025 9:06 AM EDT documented in this encounter Progress Notes * Mai Randall MD - 07/24/2025 9:00 AM EDT Subjective Patient ID: Becky Agosto is a 30 y.o. female who presents for Cervical Cancer Screening. 30 y.o. female here for annual well woman preventive exam. LMP: No LMP recorded. Sexual activity: Social History Substance and Sexual Activity Sexual activity: Yes Partners: Male control/protection: OCP intention: BC method: Smoking hx: Tobacco Use: Low Risk (07/24/2025) Tobacco Smoking Tobacco Use: Never Smokeless Tobacco Use: Never Passive Exposure: Never Alcohol use hx: Social History Substance and Sexual Activity Alcohol use: Never OBHx: # 1 - Date: None, Sex: None, Weight: None, GA: None, Type: None, Apgar1: None, Apgar5: None, Living: None, Comments: None IPV: Denies IPV Reviewed family hx Review of patient's family history indicates: Problem: No Known Problems Relation: Mother Name: Age of Onset: (Not Specified) Problem: No Known Problems Relation: Father Name: Age of Onset: (Not Specified) Health Maintenance: No results found for: HMPAP , HMMAMMO , HMCOLON Review of Systems Constitutional: Negative for appetite change, fatigue and fever. HENT: Negative for congestion, postnasal drip and rhinorrhea. Eyes: Negative for discharge and redness. Respiratory: Negative for apnea, cough, chest tightness and shortness of breath. Cardiovascular: Negative for chest pain. Gastrointestinal: Negative for abdominal pain. Endocrine: Negative for polyphagia. Genitourinary: Negative for difficulty urinating, dysuria and urgency. Musculoskeletal: Negative for arthralgias. Neurological: Negative for dizziness, light-headedness, numbness and headaches. Hematological: Negative for adenopathy. Does not bruise/bleed easily. Objective Visit Vitals BP 120/76 Pulse 84 Temp 97 ??F (36.1 ??C) (Oral) Resp 20 Ht 5' 4.96 (1.65 m) Wt 195 lb 9.6 oz (88.7 kg) SpO2 98% BMI 32.59 kg/m?? OB Status Having periods Smoking Status Never BSA 2.02 m?? Physical Exam Vitals reviewed. Exam conducted with a food services director present. Constitutional: General: She is not in acute distress. Appearance: She is obese. She is not ill-appearing. HENT: Head: Normocephalic and atraumatic. Nose: No congestion. Pulmonary: Effort: Pulmonary effort is normal. No respiratory distress. Breath sounds: Normal breath sounds. Chest: Chest wall: No deformity, tenderness or crepitus. Breasts: Breasts are symmetrical. Right: Normal. No inverted nipple, mass, nipple discharge, skin change or tenderness. Left: Normal. No inverted nipple, mass, nipple discharge, skin change or tenderness. Comments: Bilateral dense breast Genitourinary: Urethra: No prolapse. Vagina: Normal. Cervix: Normal. Rectum: Normal. Musculoskeletal: Cervical back: Normal range of motion. Lymphadenopathy: Upper Body: Right upper body: No supraclavicular, axillary or pectoral adenopathy. Left upper body: No supraclavicular, axillary or pectoral adenopathy. Neurological: General: No focal deficit present. Mental Status: She is alert. Psychiatric: Mood and Affect: Mood normal. Assessment/Plan Problem List Items Addressed This Visit Cervical cancer screening - Primary 30 y.o. here for cervical cancer screening. Will continue monitoring following ASCCP guidelines. Relevant Orders HPV High Risk with Reflex to Subtypes Pap Smear STI testing add on (NG, CT, Trich) documented in this encounter Miscellaneous Notes * Assessment & Plan Note - Mai Randall MD - 07/24/2025 10:15 AM EDT Associated Problem(s): Cervical cancer screening 30 y.o. here for cervical cancer screening. Will continue monitoring following ASCCP guidelines. documented in this encounter Plan of Treatment Scheduled Orders Name Type Priority Associated Diagnoses Orde r Schedule HPV High Risk with Reflex to Subtypes Lab Routine Cervical cancer screening Ordered: 07/24/2025 Pap Smear Pathology and Cytology Routine Cervical cancer screening Ordered: 07/24/2025 STI testing add on (NG, CT, Trich) Pathology and Cytology Routine Cervical cancer screening Ordered: 07/24/2025 documented as of this encounter Visit Diagnoses Diagnosis Cervical cancer screening- Primary Screening for malignant neoplasm of the cervix documented in this encounter Additional Health Concerns Assessment Noted Time PHQ-9 Depression Total Score: 0 03/09/20 9:59 AM EDT documented as of this encounter Care Teams Transport Driver Relationship Specialty Start Date End Date Monica Dukes FNP [address] [place] [phone] PCP - General Family Medicine 12/22/24 documented as of this encounter
--- OUTSIDE RECORDS SUMMARY | 2025-07-24 17:11 | XMS_ITS | Clinical Summary ---
Author Organization [facility] Address [address] [address] Phone Care Team Providers Care Gis Technician Name Role Phone Unknown, Unknown Primary Care [...] 02/15/2016 INFLUENZA VACCINE (#1) 2025 COVID-19 VACCINE (2024-2 6 season) 2025 HEPATITIS C SCREENING Completed 12/13/2023 [...] (12/13/2023 6:41 PM EST) HCV Nonreactive Nonreactive [facility] Blood 12/13/2023 6:41 PM EST 12/13/2023 6:55 PM EST us Pierre Adarsh Walsh MD LAB BLOOD ORDERABLES Dolores alas Result [facility] [address] [place] [phone] from Last 3 Months or Most Recently Relevant to Health Maintenance [place] [facility] [place] [facility] [place] [facility] [place] [facility] [place] [id number] Care Teams Gis Technician Relationship Specialty Start Date End Date Unknown, Unknown, PCP - General 12/13/23 Additional Source Comments The information contained in this document represents components of the legal health record. It is not the complete legal health record.[facility]
--- OUTSIDE RECORDS SUMMARY | 2025-07-24 17:11 | XMS_ITS | Encounter Summary ---
Author Organization [employer] Address [address] [place] [address] Care Team Providers Care Brand Sales Consultant Name Role Phone Monica Dukes ASSOCIATE PATHOLOGIST Primary Care Provider [phone] Encounter Details Date Type Department Care Team (Latest Contact Info) Description 07/24/2025 Travel Social History Tobacco Use Types Packs/Day [...] as of this encounter Plan of Treatment Not on file documented as of this encounter Visit Diagnoses Not on filedocumented in this encounter Additional Health Concerns Assessment Noted Time PHQ-9 Depression Total Score: 0 03/09/20 9:59 AM EDT documented as of this encounter Care Teams Brand Sales Consultant Relationship Specialty Start Date End Date Monica Dukes FNP [address] [place] [phone] PCP - General Family Medicine 12/22/24 documented as of this encounter
--- OUTSIDE RECORDS SUMMARY | 2025-07-24 17:12 | XMS_ITS | Clinical Summary ---
Author Organization [employer] Address [address] [facility] [address] [place] [address] Care Team Providers Care Conference Director Name Role Phone Monica Dukes [employer]ER Primary Care Provider Allergies No known active allergies Medications cholecalciferol [...] Active Problems Problem Noted Date Diagnosed Date Cervical cancer screening 07/24/2025 Assessment & Plan (07/24/2025 10:15 AM EDT): 30 y.o. here for cervical cancer screening. Will continue monitoring following ASCCP guidelines. Prediabetes 03/09/2025 Overview (03/11/2025): Lab Results Component Value Date HGBA1C 6.0 01/10/2025 Assessment & Plan (07/17/2025 4:01 PM EDT): - Results and recommendations reviewed with patient -Plan for lifestyle interventions Assessment & Plan (03/11/2025 7:20 PM EDT): - Results and recommendations reviewed with patient -Plan for lifestyle interventions Vitamin D insufficiency 03/09/2025 Overview (03/11/2025): Lab Results Component Value Date [id number] 19.5 (L) 01/10/2025 - Started on vitamin D 1000 units daily January 2025 Assessment & Plan (07/17/2025 4:01 PM EDT): - Encouraged to repeat labs Transaminitis 03/09/2025 Overview (03/11/2025): Lab Results Component Value Date AST 42 (H) 01/10/2025 ALT 68 (H) 01/10/2025 TOTPROTEIN 7.6 01/10/2025 ALB 4.0 01/10/2025 ALP 97 01/10/2025 TOTALBILIRUB 0.2 01/10/2025 Assessment & Plan (07/17/2025 4:00 PM EDT): - Reviewed results with patient, plan for lifestyle interventions. Repeat labs active. Assessment & Plan (03/11/2025 7:22 PM EDT): - Reviewed results with patient, plan for lifestyle interventions. Repeat in 6- 12 months. Healthcare maintenance 12/22/2024 Overview (07/17/2025): Pap: denies previous knowledge of pap. Encouraged to schedule during [facility] appt on 12/22/24, she said will consider. Scheduled for 07/24/[address] Randall. Assessment & Plan (12/22/2024 2:47 PM EDT): [...] oral antibiotics. Follow up here at the [facility] for a check up after ER evaluation and I&D, while patient awaits to be assigned to PCP Acute vaginitis 07/03/2024 12/22/2024 Assessment & Plan (07/03/2024 1:44 PM EDT): Will rx fluconazole x 1 dose Will order GC/Chlamydia tests + Urine cx, and we'll call back prn abn results. Will schedule a [facility] appt with new PCP or re consult [...] Encounters Date Type Department Care Team Description 07/24/2025 9:00 AM EDT Procedure Visit [facility] [address] [place] [address] Mai Randall MD Cervical cancer screening (Primary Dx) 07/24/2025 Travel 07/13/2025 8:30 AM EDT Office Visit [facility] [address] [place] [address] Monica Dukes FNP Transaminitis (Primary Dx); Encounter for immunization; Healthcare maintenance; Prediabetes; Vitamin D insufficiency; History of chlamydia infection 07/13/2025 Travel 07/12/2025 Telephone [facility] [address] [place] [address] Monica Dukes FNP Chart Prep 05/31/2025 11:15 AM EDT Telemedicine [facility] [address] [place] [address] Jay Mcdonald MD Encounter for initial prescription of contraceptive pills (Primary Dx) 05/31/2025 Travel 05/29/2025 1:00 PM EDT Clinical Support [facility] [address] [place] [address] Isa Sesay RN Healthcare maintenance [Z00.00] 05/29/2025 [...] your housing situation today? I have deacon sing 12/22/[address] you li [...] Mass Index 32.59 07/24/2025 9:06 AM EDT Plan of Treatment Health Maintenance Due Date Last Done Comments HPV Vaccines (1 - 3-dose series) 2010 Pap Smear 02/15/2016 Cervical Cancer Screening 2025 HPV/Cotest 2025 COVID-19 Vaccine (2023-2 5 season) 2025 Alcohol/Substance Use Screening 12/22/2025 12/22/2024 Family Planning (PISQ) 12/22/2025 12/22/2024 SDOH Screening 12/22/2025 12/22/2024 Diabetes: Hemoglobin A1C 01/10/2026 01/10/2025 Depression Screening 03/09/2026 03/09/2025, 03/09/2025 Disability Screening 07/13/2026 07/13/2025 Tobacco Screening 07/24/2026 07/24/2025 DTaP/Tdap/Td Vaccines (2 - T d or [...] Procedure Name Priority Date/Time Associated Diagnosis Comments CHLAMYDIA/TRICHOMON /NEISSERIA GONORRHOEAE, PCR, URINE Routine 07/13/2025 9:10 AM EDT Healthcare maintenance HEPATITIS C VIRAL RNA, QUANTITATIVE, REAL-TIME PCR Routine 01/10/2025 3:06 PM EDT Healthcare maintenance HIV 1/2 ANTIGEN/ANTIBODY, FOURTH GENERATION W/RFL Routine 01/10/2025 3:06 PM EDT Healthcare maintenance HEMOGLOBIN A1C Routine 01/10/2025 3:06 PM EDT Healthcare maintenance from Last 3 Months or Most Recently Relevant to Health Maintenance Results * Chlamydia/Trichomonas/Neisseria gonorrhoeae, PCR, Urine (07/13/2025 9:10 AM EDT) CT PCR, Urine NOT DETECTED Not Detect. [facility] Comment:A not detected test result does not exclude the possibilityof infection because test results can be affected byimproper specimen collection, concurrent antibiotic therapy,or the number of organisms in the specimen which may bebelow the sensitivity of the test. As with many diagnostictests, results from the Xpert CT/NG assay should beinterpreted in conjunction with other laboratory andclinical data available to the clinician.The Xpert CT/NG assay should not be used for the evaluationof suspected sexual abuse or for other medico-legalindications. Additional testing is recommended in anycircumstance when false positive or false negative resultscould lead to adverse medical, social or psychologicalconsequences. NG PCR, Urine NOT DETECTED Not Detect. [facility] Comment:A not detected test result does not exclude the possibilityof infection because test results can be affected byimproper specimen collection, concurrent antibiotic therapy,or the number of organisms in the specimen which may bebelow the sensitivity of the test. As with many diagnostictests, results from the Xpert CT/NG assay should beinterpreted in conjunction with other laboratory andclinical data available to the clinician.The Xpert CT/NG assay should not be used for the evaluationof suspected sexual abuse or for other medico-legalindications. Additional testing is recommended in anycircumstance when false positive or false negative resultscould lead to adverse medical, social or psychologicalconsequences. Urine (Urine, Random) 07/13/2025 9:10 AM EDT 07/13/2025 2:30 PM EDT Monica Dukes [facility] URINE ORDERABLES Final Res ult [facility] [address] [place] [phone] * Hepatitis C Viral RNA, Quantitative, Real-Time PCR (01/10/2025 3:06 PM EDT) Hepatitis C Viral Load <15 NOT DETECTED NOT DETECTED IU/mL [facility] HCV Log PCR <1.18 NOT DETECTED NOT DETECTED Log IU/mL [facility] Comment:For additional infor jessyjuan, please refer tohttp://education.Eventmag.ru/faq/[email or web address](This link is being provided for informational/educational purposes only.)THIS TEST WAS PERFORMED AT:[employer] [place] [phone] ORTEGA MD Blood 01/10/2025 3:06 PM EDT 01/10/2025 5:57 PM EDT Monica Dukes [employer] [facility]ER LAB BLOOD ORDERABLES Final Res ult [facility] [address] [place] [address] [phone] * HIV-1/2 Antigen and Antibodies, Fourth Generation, with Reflexes (01/10/2025 3:06 PM EDT) Pathologist [facility] HIV AB/AG Nonreactive Nonreactive [facility] Comment:HIV-1 p24 Ag and/or HIV-1/HIV-2 Ab not detected.A test result that is nonreactive does not exclude thepossibility of exposure to or infection with HIV-1 and/orHIV-2. Nonreactive results in this assay for individualswith prior exposure to HIV-1 and/or HIV-2 may be due toantigen and antibody levels that are below the limit ofdetection of this assay.The [employer] HIV Ag/Ab Combo assay result andsupplemental assay results should be interpreted inconjunction with the patient's clinical presentation,history and other laboratory results. If the results areinconsistent with clinical evidence, additional testing issuggested to confirm the result. Blood Venous blood specimen / Unknown 01/10/2025 3:06 PM EDT 01/10/2025 5:57 PM EDT us Monica Dukes [employer] [facility]ER LAB BLOOD ORDERABLES Final Res ult Performing Organization Address [facility]/ZIP Co de Phone Number [facility] [address] [place] [address] [phone] * Hemoglobin A1c (01/10/2025 3:06 PM EDT) Hemoglobin A1c 6.0 <6.0 % [facility] Comment:Hemoglobin A1C Refer ence Range Adults: [...] asaverage glucose, using the formula of the [id number] Glucose study (ADAG), Diabetes Care, Vol.31,#8,May. 2007 Blood Venous blood specimen / Unknown 01/10/2025 3:06 PM EDT 01/10/2025 5:57 PM EDT Monica Dukes HYDRAULIC MINER LAB BLOOD ORDERABLES Final Res ult Performing Organization Address [facility] Co de Phone Number [facility] [address] [place] [address] [phone] from Last 3 Months or Most Recently Relevant to Health Maintenance Insurance [employer] Care Teams Conference Director Relationship Specialty Start Date End Date Monica Dukes FNP [address] [place] [address] PCP - General Family Medicine 12/22/24
[2025-07-26 21:37] LABS: C. trachomatis RNA TMA NOT DETECTED (NOT DETECTED); N. gonorrhoeae RNA TMA NOT DETECTED (NOT DETECTED); Trichomonas (NAAT) NOT DETECTED (NOT DETECTED)
== END 2025-07-24 14:15 | disposition home or self-care (01) ==
LOC: HO.HHCLNP 14:14
PROVIDERS: Visit Provider Family Medicine
DX: Z12.4 Encounter for screening for malignant neoplasm of cervix (principal); Z20.2 Contact with and (suspected) exposure to infections with a predominantly sexual mode of transmission; Z11.51 Encounter for screening for human papillomavirus (HPV)
CPT/HCPCS: 87491; 87591; 87626; 87661; 88175